=== PATIENT | female | born 1940 ===

== ENCOUNTER 2017-10-13 13:57 | Emergency (ER) | payer MEDICARE ==
[2017-10-13 14:06] VITALS: RESP 18; O2SAT 99
[2017-10-13 14:19] VITALS: TEMP 97
--- NOTE | 2017-10-13 14:33 | ED PDOC ---
Lower Extremity Pain/Injury Time Seen by Provider: 10/13/17 14:06 Chief Complaint (Nursing): Hip Pain Chief Complaint (Provider): Left hip pain History Per: Patient Additional Complaint(s): 77 yo female, PMH of DM, Patient fell yesterday 10/12/17 at 1500 in the house. Pt reports that she did not fall to the floor, she was able to keep herself upright by holding onto her counter. Pt felt something "pull" in her leg. Patient having left hip pain that is radiating down left leg. pt ambulating into ED Past Medical History Reviewed: Nursing Documentation, Vital Signs Vital Signs: Last Vital Signs Temp 97 F L 10/13/17 14:16 Pulse 96 H 10/13/17 14:16 Resp 18 10/13/17 14:16 BP 149/90 10/13/17 14:16 Pulse Ox 99 10/13/17 14:16 - Medical History PMH: Diabetes - Family History Family History: States: Unknown Family Hx - Living Arrangements Living Arrangements: With Family - Social History Current smoker - smoking cessation education provided: No Alcohol: None Drugs: Denies - Home Medications Home Medications: Ambulatory Orders Medication Instructions Recorded ALPRAZolam [Xanax] 0.25 mg PO Q8H 10/13/17 Aspirin [Ecotrin] 81 mg PO DAILY 10/13/17 Dicyclomine [Bentyl] 10 mg PO TID PRN 10/13/17 Ferrous Sulfate [Feosol] 325 mg PO DAILY 10/13/17 Glimepiride [Amaryl] 1 mg PO DAILY 10/13/17 Linagliptin [Tradjenta] 5 mg PO DAILY 10/13/17 Loperamide [Imodium] 2 mg PO ASDIR PRN MDD 16 mg 10/13/17 MetFORMIN [glucoPHAGE] 1,000 mg PO BID 10/13/17 Omeprazole [Omeprazole] 40 mg PO DAILY 10/13/17 Simvastatin [Zocor] 20 mg PO HS 10/13/17 Valsartan [Diovan] 80 mg PO DAILY 10/13/17 predniSONE [predniSONE Tab] 10 mg PO DAILY #4 tab 10/13/17 - Allergies Allergies/Adverse Reactions: Allergies Allergy/AdvReac Type Severity Reaction Status Date / Time egg Allergy RASH Verified 10/13/17 14:03 Penicillins Allergy RASH Verified 10/13/17 14:03 Review of Systems ROS Statement: Except As Marked, All Systems Reviewed And Found Negative Musculoskeletal: Positive for: Leg Pain Physical Exam - Reviewed Nursing Documentation Reviewed: Yes Vital Signs Reviewed: Yes - Physical Exam Appears: Positive for: Well, Non-toxic, No Acute Distress Head Exam: Positive for: ATRAUMATIC, NORMAL INSPECTION, NORMOCEPHALIC Skin: Positive for: Normal Color, Warm, DRY Eye Exam: Positive for: EOMI, Normal appearance, PERRL ENT: Positive for: Normal ENT Inspection Neck: Positive for: Normal, Painless ROM Cardiovascular/Chest: Positive for: Regular Rate, Rhythm Respiratory: Positive for: CNT, Normal Breath Sounds Gastrointestinal/Abdominal: Positive for: Normal Exam, Bowel Sounds, Soft Back: Positive for: Normal Inspection Extremity: Positive for: Normal ROM, Other (Pt fully moving both legs in bed, kicking into air). Negative for: Tenderness, Deformity, Swelling Neurologic/Psych: Positive for: Alert, Oriented - Laboratory Results Result Diagrams: 10/13/17 14:52 10/13/17 14:52 - ECG O2 Sat by Pulse Oximetry: 99 Medical Decision Making Medical Decision Making: Pt requesting steroid shots, reports it is the only medication that alleviates her pain XRs obtained to entire LLE, NAD Pt educated on all results and demonstrated full understanding Pt reports feeling greatly improved on re-eval. Pt ambulating out of ED without difficulty. reports she will follow up with her orthopedic tomorrow Disposition - Clinical Impression Clinical Impression: Leg strain - Patient ED Disposition Is Patient to be Admitted: No - Disposition Disposition: Routine/Home Disposition Time: 17:38 Condition: STABLE Prescriptions: predniSONE [predniSONE Tab] 10 mg PO DAILY #4 tab Instructions: Leg Sprain (ED) Forms: [employer] ([place]) Print Language: [place]
[2017-10-13 15:14] LABS: BASO # 0.1 K/uL (0.0-0.2); BASO % 0.8 % (0.0-2.0); EOS # 0.3 K/uL (0.0-0.7); EOS % 2.9 % (0.0-4.0); HEMATOCRIT 38.4 % (34.0-47.0); LYMPH # 3.5 K/uL (1.0-4.3); LYMPH % 34.1 % (20.0-40.0); MEAN CELL VOLUME 91.5 fl (81.0-99.0); MEAN CORPUSCULAR HEMOGLOBIN 30.5 pg (27.0-31.0); MEAN CORPUSCULAR HGB CONC 33.4 g/dL (33.0-37.0); MEAN PLATELET VOLUME 8.6 fl (7.2-11.7); MONO # 0.9 K/uL (0.0-0.8); NEUT # 5.5 K/uL (1.8-7.0); NEUT % 53.2 % (50.0-75.0); NRBC % 0.2 % (0.0-0.0); RED CELL DISTRIBUTION WIDTH 13.6 % (11.5-14.5); WHITE BLOOD COUNT 10.3 K/uL (4.8-10.8)
[2017-10-13 15:27] LABS: ALKALINE PHOSPHATASE 66 U/L (38-126); ALT/SGPT 35 U/L (9-52); AST/SGOT 26 U/L (14-36); BILIRUBIN,TOTAL 0.5 mg/dl (0.2-1.3); CALCIUM 9.6 mg/dL (8.4-10.2); CARBON DIOXIDE 26 mmol/L (22-30); CHLORIDE 102 mmol/L (98-107); GFR AFRICAN-AMERICAN > 60; GLUCOSE,RANDOM 182 mg/dL (65-105); POTASSIUM 4.7 MMOL/L (3.6-5.0); SODIUM 141 mmol/l (132-148); TOTAL PROTEIN 8.5 G/DL (6.3-8.2)
[2017-10-13 15:34] LABS: ALB/GLOB RATIO 1.3 (1.0-2.1); BLOOD UREA NITROGEN 13 mg/dl (7-17)
--- NOTE | 2017-10-13 16:18 | RAD ---
PROCEDURE: Left Hip X-ray Radiographs. HISTORY: Posttraumatic left hip pain COMPARISON: None. FINDINGS: BONES: Normal. No fracture. JOINTS: Normal. SOFT TISSUES: Normal. OTHER FINDINGS: None. IMPRESSION: No acute findings related to/accounting for the clinical presentation.
--- NOTE | 2017-10-13 16:19 | RAD ---
PROCEDURE: Left Ankle Radiographs. Cannot 78 HISTORY: pain s/p fall COMPARISON: None FINDINGS: BONES: Normal. No fracture. JOINTS: Normal. No osteoarthritis. Ankle mortise maintained. Talar dome intact SOFT TISSUES: Normal. OTHER FINDINGS: None. IMPRESSION: No acute findings related to/accounting for the clinical presentation.
--- NOTE | 2017-10-13 16:20 | RAD ---
PROCEDURE: Radiographs of the left tibia and fibula. HISTORY: pain s/p fall COMPARISON: None available. TECHNIQUE: Frontal and lateral views obtained. FINDINGS: BONES: No fracture or destructive lesion. JOINT SPACES: Unremarkable. OTHER FINDINGS: None. IMPRESSION: Unremarkable radiographs of the left tibia and fibula.
--- NOTE | 2017-10-13 16:20 | RAD ---
PROCEDURE: Left femur HISTORY: pain s/p fall COMPARISON: October 13, 2017. TECHNIQUE: Standard protocol for this study/examination. FINDINGS: No significant/acute osseous, articular or soft tissue abnormalities. IMPRESSION: No acute findings related to/accounting for the clinical presentation.
--- NOTE | 2017-10-13 16:21 | RAD ---
PROCEDURE: Left Knee Radiographs. HISTORY: Pain. COMPARISON: None. FINDINGS: BONES: Normal. No fracture. JOINTS: Normal. No osteoarthritis. JOINT EFFUSION: None. OTHER FINDINGS: None. IMPRESSION: Normal radiographs of the left knee.
[2017-10-13] MEDS ORDERED: Dexamethasone 4 MG in Sodium Chloride 0.9% 50 ML IV ONE (16:40)
[2017-10-13] MEDS ORDERED: Dexamethasone 4 mg/1 ml ONE (16:48)
[2017-10-13 17:14] VITALS: BP 138/78; PULSE 70
== END 2017-10-13 17:36 | disposition home or self-care (01) ==
LOC: H.ER 13:57
DX: S86.112A Strain of other muscle(s) and tendon(s) of posterior muscle group at lower leg level, left leg, initial encounter (principal); X50.9XXA Other and unspecified overexertion or strenuous movements or postures, initial encounter; Y92.89 Other specified places as the place of occurrence of the external cause; E11.9 Type 2 diabetes mellitus without complications; Z79.84 Long term (current) use of oral hypoglycemic drugs; Z79.82 Long term (current) use of aspirin; Z88.0 Allergy status to penicillin
CPT/HCPCS: 73502; 73551; 73562; 73590; 73610; 80053; 85025; 96360; 99283; J1100; J2270